=== PATIENT | female | born 1955 | race Hispanic/Latino ===

== ENCOUNTER 2018-01-20 18:45 | Inpatient (IN) | payer BC, OTHER ==
[~2018-01-20] VITALS: Ht 165.1 cm; Wt 58.5 kg
[~2018-01-20 18:45] MED LIST: FENTANYL CITRATE/PF 100MCG/2 ML INJ ONE; IRON; LIPITOR10 MG PO; MIDAZOLAM HCL 2 MG/2 ML VIAL ONE; PANTOPRAZOLE SO40 MG PO; Z.0.MULTIVITAMINS1 E
--- OUTSIDE RECORDS SUMMARY | 2018-01-20 18:48 | XMS REPORT ---
Author Author [facility] Address Unknown Phone Unavailable Care Team Providers Care Directory Carrier Name Role Phone BRANDY BILLY Unavailable Unavailable Problems This patient has no known problems. Allergies, Adverse Reactions, Alerts This patient has no known allergies or adverse reactions. Medications This patient has no known medications. Results Test Description Test Time Test Comments Text Results Atomic Results Result Comments MAMMOGRAPHY DIGITAL SCR BILAT [place] [address] Patient Name: LAILA BEST MR #: [id number] : 1955 Age/Sex: 62/F Req #: [id number] [facility] Physician: Ordered by: BRANDY BILLY MD Report #: [id number] Location: MAMMO Room/Bed: Procedure: [id number] MG/MAMMOGRAPHY DIGITAL SCR BILAT Exam Date: 05/16/17 Exam Time: 0936 REPORT STATUS: Signed # [id number] - MGSCRBIL #BILATERAL DIGITAL SCREENING MAMMOGRAM WITH CAD: 05/16 CLINICAL: Routine screening. Comparison is made to exams dated: 04/06/2016 mammogram, 03/24/2015 mammogram and 03/20/2014 mammogram - [facility]. Current study contains 4 films. The tissue of both breasts is heterogeneously dense. This may lower the sensitivity of mammography. Current study was also evaluated with a Computer Aided Detection (CAD) system. There are post operative findings in the left breast with a scar over the upper outer aspect. Stable right breast asymmetry in the outer aspect. No significant masses, calcifications, or other findings are seen in either breast. There has been no significant interval change. IMPRESSION: BENIGN There is no mammographic evidence of malignancy. A 1 year screening mammogram is recommended. The patient will be notified by letter of the results. Isabel Randall Jr., D.O. cw/:05/26/2017 11:39:47 [employer] Guardrail Installer: Mikaela YORK(R)(M), [facility] letter sent: Compared to Prior B9 Mammogram BI-RADS: 2 Benign Dictated By: ISABEL RANDALL DO 1139 Transcribed By: GENI on 1139 COPY TO: BRANDY BILLY MD
[2018-01-20] MEDS ORDERED: MORPHINE SULFATE 2 MG/ML SYR IV STA (19:40)
[2018-01-20] MEDS ORDERED: ONDANSETRON HCL 4 MG ORAL DISINTEGRATING TAB PO PRN (19:45)
[2018-01-20] MEDS ORDERED: DICYCLOMINE HCL 20 MG/2 ML VIAL IM ONE (19:45)
[2018-01-20] MEDS ORDERED: ONDANSETRON HCL 4 MG ORAL DISINTEGRATING TAB PO ONE (20:00)
[2018-01-20 20:03] LABS: BASOPHILS % 0.2 % (0.0-1.0); EOSINOPHILS % 0.2 % (0.0-6.0); HEMATOCRIT 39.8 % (34.2-44.1); HEMOGLOBIN 13.3 g/dL (12.0-16.0); LYMPHOCYTES # (AUTO) 0.8 (1.0-3.2); LYMPHOCYTES % 8.1 % (18.0-39.1); MEAN CORPUSCULAR HEMOGLOBIN 28.5 pg (28-32); MEAN CORPUSCULAR HGB CONC 33.4 g/dL (31-35); MEAN CORPUSCULAR VOLUME 85.4 fL (81-99); MONOCYTES # (AUTO) 0.5 (0.2-0.8); MONOCYTES % 5.5 % (4.4-11.3); NEUTROPHILS # (AUTO) 8.2 (2.1-6.9); NEUTROPHILS % 85.7 % (38.7-80.0); PLATELET COUNT 240 x10e3/uL (140-360); RED BLOOD COUNT 4.66 x10e6/uL (3.6-5.1); RED CELL DISTRIBUTION WIDTH 13.2 % (11.7-14.4)
[2018-01-20 20:17] LABS: INR 1.07; PARTIAL THROMBOPLASTIN TIME 28.8 seconds (23.8-35.5); PROTHROMBIN TIME 13.1 seconds (11.9-14.5)
[2018-01-20 20:26] LABS: ALANINE AMINOTRANSFERASE 94 IU/L (0-55); ALBUMIN 4.2 g/dL (3.5-5.0); ALBUMIN/GLOBULIN RATIO 1.3 (0.8-2.0); ALKALINE PHOSPHATASE 92 IU/L (40-150); ANION GAP 14.4 mmol/L (8-16); CARBON DIOXIDE 26 mmol/L (22-29); CHLORIDE 103 mmol/L (98-107); CREATINE KINASE 82 IU/L (29-168); CREATININE, SERUM 0.69 mg/dL (0.57-1.11); EST GLOMERULAR FILTRATION RATE > 60 ML/MIN (60-); GLUCOSE 140 mg/dL (74-118); POTASSIUM 3.4 mmol/L (3.5-5.1); SODIUM 140 mmol/L (136-145)
--- NOTE | 2018-01-20 20:31 | Diagnostic Imaging Report ---
EXAMINATION: CHEST SINGLE (PORTABLE) INDICATION: Chest pain. COMPARISON: 09/01/2015 FINDINGS: TUBES and LINES: None. LUNGS: Lungs are not well inflated. Lungs are clear. There is no evidence of pneumonia or pulmonary edema. PLEURA: No pleural effusion or pneumothorax. HEART AND MEDIASTINUM: The cardiomediastinal silhouette is unremarkable. BONES AND SOFT TISSUES: No acute osseous lesion. Soft tissues are unremarkable. UPPER ABDOMEN: No free air under the diaphragm. IMPRESSION: No acute thoracic abnormality. Signed by: Dr. Parmjit Mendenhall M.D. on 01/20/2018 8:28 PM
--- NOTE | 2018-01-20 20:47 | Diagnostic Imaging Report ---
EXAM: Right Upper Quadrant Ultrasound INDICATION: Right upper quadrant pain. COMPARISON: None. TECHNIQUE: Transverse and longitudinal images of the right upper abdomen were obtained. FINDINGS: Liver: Size: 14.2 cm in the right midclavicular line, normal Appearance: Normal echogenicity, smooth contour Mass: No focal masses Gallbladder: Stones/Sludge: Echogenic mobile stone seen in the gallbladder with posterior acoustic shadowing. Wall: 0.2 cm Appearance: No wall thickening, pericholecystic fluid or hydrops. Sonographic Chaney's Sign: Negative Bile Ducts: Intrahepatic Ducts: No dilatation Extrahepatic Ducts: Common bile duct measures 0.3 cm, no dilatation Pancreas: Visualized portions of the pancreatic head, neck and proximal body are normal. Kidneys: Length: Right 10.7 cm Echogenicity: Normal Collecting System: No hydronephrosis Stone: None Cyst/Mass: None Vessels: Aorta: Visualized portions are normal Inferior Vena Cava: Visualized portions are normal Main Portal Vein: 0.8 cm, normal size with hepatopetal flow. Free Fluid: No ascites or pleural effusion IMPRESSION: 1. Gallbladder cholelithiasis without evidence of acute or chronic cholecystitis. However, the presence of the stone may explain colicky pain. Signed by: Dr. Parmjit Mendenhall M.D. on 01/20/2018 8:44 PM
[2018-01-20 21:02] LABS: BLOOD UREA NITROGEN 22.1 mg/dL (7-26); BUN/CREATININE RATIO 32 (6-25)
[2018-01-20 21:11] LABS: CLARITY,URINE CLOUDY (CLEAR); COLOR,URINE YELLOW (YELLOW)
[2018-01-20 21:12] LABS: BILIRUBIN,URINE NEGATIVE (NEGATIVE); KETONES,URINE 1+ (NEGATIVE); LEUKOCYTE ESTERASE ,URINE NEGATIVE (NEGATIVE); NITRITE,URINE POSITIVE (NEGATIVE); PROTEIN,URINE DIPSTICK NEGATIVE (NEGATIVE); URINE UROBILINOGEN 0.2 mg/dL (0.2 - 1)
[2018-01-20 21:32] LABS: BACTERIA,URINE MANY /HPF; EPITHELIAL CELLS,URINE FEW /LPF; WBC,URINE (MAN) 0-5 /HPF (0-5)
[2018-01-20 21:33] LABS: AMYLASE 44 U/L (25-125); LIPASE 25 U/L (8-78)
[2018-01-20] MEDS ORDERED: METRONIDAZOLE 500MG/NS 100ML 100 ML IV SCH (22:00)
[2018-01-20] MEDS ORDERED: METRONIDAZOLE 500MG/NS 100ML IV SCH (22:00)
[2018-01-20] MEDS: METRONIDAZOLE 500MG/NS 100ML 100 ML IV SCH (22:13)
[2018-01-20] MEDS: SODIUM CHLORIDE 0.9% 1000ML 1,000 ML IV SCH (22:13)
[2018-01-20 22:25] VITALS: BP 113/59
[2018-01-20 23:00] VITALS: BP 113/59
[2018-01-20] MEDS: CEFOXITIN SOD 1 GM VIAL IV SCH (23:20)
[2018-01-21] MEDS ORDERED: CALCIUM 500+D1 EACH PO (01:47)
[2018-01-21 04:00] VITALS: BP 98/55
[2018-01-21] MEDS: METRONIDAZOLE 500MG/NS 100ML 100 ML IV SCH ×4 (04:30→21:38)
[2018-01-21] MEDS: CEFOXITIN SOD 1 GM VIAL IV SCH ×3 (05:23→21:38)
[2018-01-21] MEDS: SODIUM CHLORIDE 0.9% 1000ML 1,000 ML IV SCH ×3 (05:46→21:38)
[2018-01-21 07:48] LABS: BASOPHILS % 0.2 % (0.0-1.0); EOSINOPHILS # (AUTO) 0.1 (0.0-0.4); EOSINOPHILS % 1.7 % (0.0-6.0); HEMATOCRIT 34.4 % (34.2-44.1); HEMOGLOBIN 11.5 g/dL (12.0-16.0); LYMPHOCYTES # (AUTO) 1.6 (1.0-3.2); LYMPHOCYTES % 35.3 % (18.0-39.1); MEAN CORPUSCULAR HEMOGLOBIN 28.3 pg (28-32); MEAN CORPUSCULAR HGB CONC 33.4 g/dL (31-35); MEAN CORPUSCULAR VOLUME 84.7 fL (81-99); MONOCYTES # (AUTO) 0.5 (0.2-0.8); MONOCYTES % 9.8 % (4.4-11.3); NEUTROPHILS # (AUTO) 2.4 (2.1-6.9); NEUTROPHILS % 52.8 % (38.7-80.0); PLATELET COUNT 200 x10e3/uL (140-360); RED BLOOD COUNT 4.06 x10e6/uL (3.6-5.1); RED CELL DISTRIBUTION WIDTH 13.1 % (11.7-14.4)
[2018-01-21 08:00] VITALS: BP 102/50
[2018-01-21 08:37] LABS: ALANINE AMINOTRANSFERASE 207 IU/L (0-55); ALBUMIN 3.4 g/dL (3.5-5.0); ALBUMIN/GLOBULIN RATIO 1.3 (0.8-2.0); ALKALINE PHOSPHATASE 79 IU/L (40-150); AMYLASE 44 U/L (25-125); ANION GAP 9.8 mmol/L (8-16); BLOOD UREA NITROGEN 14 mg/dL (7-26); BUN/CREATININE RATIO 19 (6-25); CALCIUM 9.1 mg/dL (8.4-10.2); CARBON DIOXIDE 27 mmol/L (22-29); CHLORIDE 109 mmol/L (98-107); CREATININE, SERUM 0.75 mg/dL (0.57-1.11); EST GLOMERULAR FILTRATION RATE > 60 ML/MIN (60-); GLUCOSE 94 mg/dL (74-118); LIPASE 19 U/L (8-78); POTASSIUM 3.8 mmol/L (3.5-5.1); SODIUM 142 mmol/L (136-145)
[2018-01-21] MEDS: PANTOPRAZOLE 40 MG 10ML VIAL IV SCH (09:18)
--- NOTE | 2018-01-21 10:00 | Consultation ---
DATE OF CONSULTATION: January 21, 2018 CHIEF COMPLAINT: Abdominal pain. HPI: The patient is a 62-year-old female with a 1-day history of pain of sudden onset in the epigastric region radiating to both flanks with nausea and vomiting. Patient denies fever, chills or diarrhea. No prior episode of similar kind. PAST MEDICAL HISTORY: Negative for chronic medical illness. SURGICAL HISTORY: Positive for hysterectomy. ALLERGIES: NO KNOWN DRUG ALLERGIES. SOCIAL HABITS: The patient does not smoke or drink alcohol. REVIEW OF SYSTEMS: No chest pain, shortness of breath or cough. PHYSICAL EXAMINATION: VITALS: Stable. She is afebrile. GENERAL: Patient is awake, alert and in mild discomfort. HEENT: Sclerae anicteric. NECK: Supple. LUNGS: Clear. HEART: Is regular rate and rhythm. ABDOMEN: Soft with mild guarding in epigastric area. No rebound. EXTREMITIES: Without cyanosis or edema. White cell count is 9, hemoglobin 13. Liver function test elevated bilirubin 1.4 with elevated transaminase. Alkaline phosphatase 92. Lipase 25. Gallbladder ultrasound showed gallstones. ASSESSMENT: Cholelithiasis and probable cholecystitis. PLAN: Laparoscopic cholecystectomy. Attendant risks discussed with patient in detail. Job#: [id number]
[2018-01-21 12:00] VITALS: BP 117/59
[2018-01-21] MEDS ORDERED: BUPIVACAINE 0.25%/EPI 30ML SDV INJ ONE (12:12)
[2018-01-21] MEDS ORDERED: MEPERIDINE HCL INJ 50 MG/ML INJ ONE (14:59)
[2018-01-21 16:00] VITALS: BP 192/80
[2018-01-21] MEDS: ONDANSETRON HCL INJ 2 MG/ML VIAL IV PRN ×2 (16:00→21:38)
[2018-01-21] MEDS: MORPHINE SULFATE 2 MG/ML SYR IV PRN ×2 (16:00→21:38)
[2018-01-21] MEDS ORDERED: GLYCOPYRROLATE INJ 1MG/ 5 ML SYR ONE (17:39)
[2018-01-21] MEDS ORDERED: SEVOFLURANE INHAL SOLN 250 ML PEN BTL ONE (17:39)
[2018-01-21] MEDS ORDERED: PROPOFOL IV EMULSION 10 MG/ML 20 ML VIAL ONE (17:39)
[2018-01-21] MEDS ORDERED: NEOSTIGMINE 5 MG/5ML SYR ONE (17:39)
[2018-01-21] MEDS ORDERED: LIDOCAINE HCL 2% LOCAL INJ 5 ML SDV VIAL INJ ONE (17:39)
[2018-01-21] MEDS ORDERED: ONDANSETRON HCL INJ 2 MG/ML VIAL ONE (17:39)
[2018-01-21] MEDS ORDERED: ROCURONIUM BROMIDE 10 MG/ML 5ML VIAL ONE (17:39)
[2018-01-21] MEDS ORDERED: DEXAMETHASONE SOD PHOS INJ 4 MG/ML VIAL ONE (17:39)
--- NOTE | 2018-01-21 18:07 | Operative Report ---
DATE OF PROCEDURE: January 21, 2018 PREOPERATIVE DIAGNOSIS: Cholecystitis. POSTOPERATIVE DIAGNOSIS: Cholecystitis. OPERATIVE PROCEDURE: Laparoscopic cholecystectomy. ANESTHESIA: General endotracheal, Dr. Mac Bee. INDICATIONS: The patient is a 62-year-old female with epigastric pain, and ultrasound showed distention of the gallbladder with gallstones. Patient consented for laparoscopic cholecystectomy. Attendant risks discussed. PROCEDURE FINDINGS: Acute cholecystitis. DESCRIPTION OF PROCEDURE: The patient was brought to the OR, intubated. Abdomen prepped with alcohol and draped in sterile fashion. Infraumbilical incision is made and a 10 mm port inserted, insufflation then begun. Under direct vision, other port sites placed in the midepigastric and right upper quadrant. Gallbladder chronically inflamed and distended. Fundus retracted in cephalad direction. The neck of the gallbladder retracted laterally. With blunt and sharp dissection, cystic artery and cystic duct isolated and the junction of the common bile duct was seen before triple clipping the cystic artery and cystic duct and dividing them between clips. Gallbladder detached from liver with cautery and taken out through umbilical port site. The operative field was irrigated. Hemostasis achieved. All ports removed under direct vision. Fascia closure with 0 Vicryl. Skin was closed with subcuticular stitch. Patient was extubated and transported to the recovery room in guarded condition. Estimated blood loss 5 mL. Job#: [id number] JUAN
[2018-01-21 20:03] VITALS: BP 143/69
[2018-01-22] VITALS: BP 141/70
[2018-01-22] MEDS: MORPHINE SULFATE 2 MG/ML SYR IV PRN ×2 (03:10→09:21)
[2018-01-22] MEDS: ONDANSETRON HCL INJ 2 MG/ML VIAL IV PRN ×2 (03:15→09:21)
[2018-01-22 04:00] VITALS: BP 138/73
[2018-01-22] MEDS: SODIUM CHLORIDE 0.9% 1000ML 1,000 ML IV SCH ×2 (05:12→14:09)
[2018-01-22] MEDS: CEFOXITIN SOD 1 GM VIAL IV SCH ×3 (05:12→22:39)
[2018-01-22] MEDS: METRONIDAZOLE 500MG/NS 100ML 100 ML IV SCH ×4 (05:12→21:22)
[2018-01-22 06:26] LABS: BASOPHILS % 0.1 % (0.0-1.0); HEMATOCRIT 33.1 % (34.2-44.1); LYMPHOCYTES # (AUTO) 1.1 (1.0-3.2); LYMPHOCYTES % 13.7 % (18.0-39.1); MEAN CORPUSCULAR HEMOGLOBIN 28.4 pg (28-32); MEAN CORPUSCULAR HGB CONC 33.2 g/dL (31-35); MEAN CORPUSCULAR VOLUME 85.3 fL (81-99); MONOCYTES # (AUTO) 0.7 (0.2-0.8); MONOCYTES % 8.6 % (4.4-11.3); NEUTROPHILS # (AUTO) 6.4 (2.1-6.9); NEUTROPHILS % 77.2 % (38.7-80.0); PLATELET COUNT 193 x10e3/uL (140-360); RED BLOOD COUNT 3.88 x10e6/uL (3.6-5.1); RED CELL DISTRIBUTION WIDTH 13.3 % (11.7-14.4)
[2018-01-22 06:51] LABS: ANION GAP 10.7 mmol/L (8-16); BLOOD UREA NITROGEN 7 mg/dL (7-26); BUN/CREATININE RATIO 9 (6-25); CALCIUM 8.7 mg/dL (8.4-10.2); CARBON DIOXIDE 26 mmol/L (22-29); CHLORIDE 107 mmol/L (98-107); CREATININE, SERUM 0.76 mg/dL (0.57-1.11); EST GLOMERULAR FILTRATION RATE > 60 ML/MIN (60-); GLUCOSE 103 mg/dL (74-118); LIPASE 11 U/L (8-78); POTASSIUM 3.7 mmol/L (3.5-5.1); SODIUM 140 mmol/L (136-145)
[2018-01-22 08:43] VITALS: BP 142/64
[2018-01-22] MEDS: PANTOPRAZOLE 40 MG 10ML VIAL IV SCH (08:43)
[2018-01-22 09:11] VITALS: BP 142/64
[2018-01-22 12:31] VITALS: BP 131/69
[2018-01-22] MEDS ORDERED: ACETAMINOPHEN/CODEINE 300MG - 30MG TAB PO PRN (15:15)
[2018-01-22 20:00] VITALS: BP 134/63
== END 2018-01-22 22:52 | disposition home or self-care (01) | DRG 419 ==
LOC: ER 18:45 → ERHOLD 21:55 → MED/SURG2 22:06
PROVIDERS: ADMIT Internal Medicine; ATTEND Internal Medicine
PROC: 0FT44ZZ Resection of Gallbladder, Percutaneous Endoscopic Approach (ICD-10-PCS; principal; 2018-01-21 14:00)
DX: K80.00 Calculus of gallbladder with acute cholecystitis without obstruction (principal); I10 Essential (primary) hypertension; K21.9 Gastro-esophageal reflux disease without esophagitis; E78.5 Hyperlipidemia, unspecified
CPT/HCPCS: 36415; 71045; 76705; 80048; 80053; 81001; 82150; 82550; 82553; 83690; 83880; 84484; 85025; 85379; 85610; 85730; 88304; 93005; 99284; J0500; J0694; J1100; J2001; J2175; J2250; J2270; J2405; J7030

== ENCOUNTER → 2018-05-14 | Outpatient (CLI) | payer BC ==
[~2018-05-14] MED LIST changes: +CALCIUM 500+D1 EACH PO; -FENTANYL CITRATE/PF 100MCG/2 ML INJ ONE; -MIDAZOLAM HCL 2 MG/2 ML VIAL ONE
== END ==
LOC: MAMMO 09:41
PROVIDERS: ATTEND Internal Medicine
DX: Z12.31 Encounter for screening mammogram for malignant neoplasm of breast (principal)
CPT/HCPCS: 77067

== ENCOUNTER → 2019-06-24 | Outpatient (CLI) | payer BC ==
--- NOTE | 2019-06-28 09:16 | Diagnostic Imaging Report ---
#[id number] - MGSCRBIL #BILATERAL DIGITAL SCREENING MAMMOGRAM WITH CAD: 06/24/2019 CLINICAL: Routine screening. Comparison is made to exams dated: 05/14/2018 mammogram and 05/16/2017 mammogram - [facility]. The tissue of both breasts is heterogeneously dense. This may lower the sensitivity of mammography. Current study was also evaluated with a Computer Aided Detection (CAD) system. There are post operative findings in the left breast. No significant masses, calcifications, or other findings are seen in either breast. There has been no significant interval change. IMPRESSION: NEGATIVE There is no mammographic evidence of malignancy. A 1 year screening mammogram is recommended. The patient will be notified by letter of the results. VALARIE corral/vivek:06/26/2019 11:34:35 Managing Attorney: Mikaela YORK([place])(M), [facility] letter sent: Compared to Prior B9 Mammogram BI-RADS: 1 Negative
== END ==
LOC: MAMMO 12:48
PROVIDERS: ATTEND Internal Medicine
DX: Z12.31 Encounter for screening mammogram for malignant neoplasm of breast (principal)
CPT/HCPCS: 77067